=== PATIENT | female | born 2000 ===

== ENCOUNTER 2021-02-08 17:42 | Emergency (ER) | payer SELFPAY ==
[2021-02-08 18:38] VITALS: BP 131/86
[2021-02-08] MEDS ORDERED: SERTRALINE 50 MG TAB PO ONE (19:38)
--- NOTE | 2021-02-08 19:54 | Emergency Department Report ---
ED General Adult HPI - General Chief complaint: Anxiety Stated complaint: CANT EAT/SLEEP Source: patient Mode of arrival: Ambulatory Limitations: No Limitations - History of Present Illness Initial comments: Patient is a nulliparous 20-year-old -[place] female with history of chronic anxiety, panic attacks and depression who presents to the ED with complaint of persistent intermittent anxiety attacks characterized by shortness of breath and insomnia for the last 3 days. Patient states that she recently relocated to [facility] from [place], and being the first time she has bumped away from her relatives she has been having some anxiety attacks intermittently but that in the last 3 days her symptoms got worse. Patient states that the symptoms are possibly due to the fact that she is due to start a new job in 4 days time. Patient states that in the last 3 days she has not been able to sleep despite taking [id number] medications like melatonin. P atient also states that she recently started having her regular menstrual cycle having been amenorrheic for over a year after stopping control medications. Patient states that she has also been having emotional outbursts and suspected that this may have been from "my hormones acting up". Patient denies chest pain, dizziness, headache, fever, chills, nausea and vomiting, diarrhea, abdominal pain, dysuria, urinary frequency and urgency, back pain, traumatic injury, suicidal or homicidal ideations, hallucinations or any stressful moments in her family relationship. MD Complaint: Insominia; Anxiety -: Sudden, days(s) (3) Location: abdomen Radiation: non-radiation Quality: dull Consistency: constant Improves with: none Worsens with: none Associated Symptoms: denies other symptoms, malaise, shortness of breath. denies: confusion, chest pain, cough, diaphoresis, fever/chills, headaches, loss of appetite, nausea/vomiting, rash, seizure, syncope, weakness Treatments Prior to Arrival: none - Related Data Previous Rx's Medication Instructions Recorded Last Taken Type Venlafaxine HCl [Venlafaxine] 50 mg PO DAILY #30 tablet 02/08/21 Unknown Rx traZODone [Desyrel] 50 mg PO QHS PRN #30 tab 02/08/21 Unknown Rx Allergies Allergy/AdvReac Type Severity Reaction Status Date / Time amoxicillin AdvReac Rash Verified 02/08/21 18:32 Penicillins AdvReac Rash Verified 02/08/21 18:32 sulfamethoxazole AdvReac Vomiting Verified 02/08/21 18:32 [From Bactrim] sumatriptan AdvReac Anaphylaxis Verified 02/08/21 18:32 trimethoprim [From Bactrim] AdvReac Vomiting Verified 02/08/21 18:32 ED Review of Systems ROS: Stated complaint: CANT EAT/SLEEP Other details as noted in HPI Constitutional: malaise. denies: chills, fever Eyes: denies: eye pain, eye discharge, vision change ENT: denies: ear pain, throat pain Respiratory: shortness of breath. denies: cough, wheezing Cardiovascular: denies: chest pain, palpitations Endocrine: no symptoms reported Gastrointestinal: denies: abdominal pain, nausea, vomiting, diarrhea Genitourinary: denies: urgency, dysuria, discharge Musculoskeletal: denies: back pain, joint swelling, arthralgia Skin: denies: rash, lesions Neurological: denies: headache, weakness, paresthesias Psychiatric: anxiety, other (Insomnia). denies: depression Hematological/Lymphatic: denies: easy bleeding, easy bruising ED Past Medical Hx - Past Medical History Hx Psychiatric Treatment: Yes (Anxiety) Additional medical history: anxiety, ovarian cysts - Surgical History Additional Surgical History: tonsillectomy - Social History Smoking Status: Never Smoker Substance Use Type: None - Medications Home Medications: Home Medications Medication Instructions Recorded Confirmed Last Taken Type Venlafaxine HCl [Venlafaxine] 50 mg PO DAILY #30 tablet 02/08/21 Unknown Rx traZODone [Desyrel] 50 mg PO QHS PRN #30 tab 02/08/21 Unknown Rx ED Physical Exam - General Limitations: No Limitations General appearance: alert, in no apparent distress - Head Head exam: Present: atraumatic, normocephalic, normal inspection - Eye Eye exam: Present: normal appearance, PERRL, EOMI - ENT ENT exam: Present: normal exam, normal orophraynx, mucous membranes moist, TM's normal bilaterally, normal external ear exam - Neck Neck exam: Present: normal inspection, full ROM - Respiratory Respiratory exam: Present: normal lung sounds bilaterally. Absent: respiratory distress, wheezes, rales, stridor, chest wall tenderness, accessory muscle use, decreased breath sounds, prolonged expiratory - Cardiovascular Cardiovascular Exam: Present: regular rate, normal rhythm, normal heart sounds. Absent: systolic murmur, diastolic murmur, rubs, gallop - GI/Abdominal GI/Abdominal exam: Present: soft, normal bowel sounds. Absent: tenderness, guarding, rebound, hyperactive bowel sounds, hypoactive bowel sounds, organomegaly - Extremities Exam Extremities exam: Present: normal inspection, full ROM, normal capillary refill - Back Exam Back exam: Present: normal inspection, full ROM. Absent: tenderness, CVA tenderness (R), CVA tenderness (L), muscle spasm, paraspinal tenderness - Neurological Exam Neurological exam: Present: alert, oriented X3, CN II-XII intact, normal gait, reflexes normal - Psychiatric Psychiatric exam: Present: normal affect, normal mood - Skin Skin exam: Present: warm, dry, intact, normal color. Absent: rash ED Course Vital Signs 02/08/21 18:32 Temperature 98.2 F Pulse Rate 79 Respiratory 16 Rate Blood Pressure 131/86 O2 Sat by Pulse 99 Oximetry ED Medical Decision Making - Medical Decision Making This is a nulliparous 20-year-old -[place] female with history of chronic anxiety, panic attacks and depression who presents to the ED with complaint of persistent intermittent anxiety attacks characterized by shortness of breath and insomnia for the last 3 days. Patient states that she recently relocated to [facility] from [place], and being the first time she has bumped away from her relatives she has been having some anxiety attacks intermittently but that in the last 3 days her symptoms got worse. Patient states that the symptoms are possibly due to the fact that she is due to start a new job in 4 days time. Patient states that in the last 3 days she has not been able to sleep despite taking [id number] medications like melatonin. Patient also states that she recently started having her regular menstrual cycle having been amenorrheic for over a year after stopping control medications. Patient states that she has also been having emotional outbursts and suspected that this may have been from "my hormones acting up". In the ED, patient is alert and oriented x3 and is not in any distress. Patient was treated in the ED for anxiety and discharged home on medications. Patient is hemodynamically stable. Patient was advised to follow-up with primary care physician in 7 to 10 days for reevaluation or return to the ED immediately if symptoms get worse. - Differential Diagnosis Anxiety; depression; panic attack; insomnia Critical care attestation.: If time is entered above; I have spent that time in minutes in the direct care of this critically ill patient, excluding procedure time. ED Disposition Clinical Impression: Anxiety as acute reaction to exceptional stress, Insomnia secondary to anxiety Disposition: TO HOME OR SELFCARE Is pt being admited?: No Does the pt Need Aspirin: No Condition: Stable Instructions: Generalized Anxiety Disorder, Adult, Insomnia Additional Instructions: Your symptoms are due to anxiety worsening her insomnia condition. Therefore take medications with food, drink plenty of fluids and follow-up with your primary care physician in 5 to 7 days for reevaluation. Return to the ED immediately if symptoms get worse. Prescriptions: traZODone [Desyrel] 50 mg PO QHS PRN #30 tab PRN Reason: Insomnia Venlafaxine HCl [Venlafaxine] 50 mg PO DAILY #30 tablet Referrals: [facility] [Provider Group] - 3-5 Days [facility] [Outside] - 3-5 Days Time of Disposition: 19:51 Print Language: SOUTH [place]
== END 2021-02-08 20:21 | disposition home or self-care (01) ==
LOC: ED 17:42
DX: F41.1 Generalized anxiety disorder (principal); F43.0 Acute stress reaction; G47.00 Insomnia, unspecified; Z79.899 Other long term (current) drug therapy; Z88.2 Allergy status to sulfonamides; Z88.0 Allergy status to penicillin; Z88.8 Allergy status to other drugs, medicaments and biological substances; Z90.49 Acquired absence of other specified parts of digestive tract
CPT/HCPCS: 99282